=== PATIENT | male | born 1995 | race Caucasian/White ===

== ENCOUNTER 2024-06-06 12:10 | Emergency (ER) | payer OTHER ==
[~2024-06-06] VITALS: Ht 175.3 cm; Wt 75.0 kg
[2024-06-06 12:13] VITALS: O2SAT 97
[2024-06-06 16:05] VITALS: BP 122/68; PULSE 88; RESP 18; TEMP 98.5
[2024-06-06] MEDS: TETANUS, DIPHTHERIA, PERTUSSIS VAC/PF 0.5ML (>10YR OLD) IM ONE (16:05)
[2024-06-06] MEDS: IBUPROFEN 400MG TABLET PO ONE (16:05)
== END 2024-06-06 16:08 | disposition home or self-care (01) ==
LOC: ER 12:10
DX: S01.01XA Laceration without foreign body of scalp, initial encounter (principal); W18.30XA Fall on same level, unspecified, initial encounter; Y93.89 Activity, other specified; Y92.89 Other specified places as the place of occurrence of the external cause; Y99.8 Other external cause status
CPT/HCPCS: 90715; 12001; 90471; 99283; Z7610

== ENCOUNTER 2024-06-15 11:30 | Emergency (ER) | payer OTHER ==
[~2024-06-15] VITALS: Ht 172.7 cm; Wt 83.0 kg
[2024-06-15 11:35] VITALS: TEMP 98.7; O2SAT 98
[2024-06-15 16:02] VITALS: BP 132/90; PULSE 73; RESP 14
== END 2024-06-15 16:03 | disposition home or self-care (01) ==
LOC: ER 11:34
DX: S09.90XA Unspecified injury of head, initial encounter (principal); W18.30XA Fall on same level, unspecified, initial encounter; Y93.89 Activity, other specified; Y92.89 Other specified places as the place of occurrence of the external cause; Y99.8 Other external cause status
CPT/HCPCS: 99284